=== PATIENT | female | born 1955 | race Caucasian/White ===

== ENCOUNTER 2017-07-20 07:14 | Emergency (ER) | payer BC ==
[~2017-07-20] VITALS: Ht 167.6 cm; Wt 52.0 kg
[~2017-07-20 07:14] MED LIST: AUGM875 PO; Z.0.NO CURRENT MEDS
[2017-07-20 07:17] VITALS: BP 181/106; PULSE 114; RESP 16; TEMP 98.5; O2SAT 99
[2017-07-20] MEDS ORDERED: LIDOCAINE 1%/EPINEPHrine 1:100,000 SOLN 30 ML VIAL ONE (07:44)
[2017-07-20] MEDS ORDERED: LIDOCAINE 1%/EPINEPHrine 1:100,000 SOLN 20 ML VIAL INFIL ONE (07:45)
--- NOTE | 2017-07-20 08:12 | PD ---
Physical Exam Date Seen by Provider: Jul 20, 2017 Time Seen by Provider: 08:09 Narrative 62-year-old female presents emergency department with right axillary abscesses over the past couple of weeks. Patient has been trying to use hot compresses to get them to drain. She has no history of this in the past. Patient was seen by Dr. Booth and I was asked to come and drain them. I&D was performed with culture obtained. Please see procedure note. Data Data Last Documented VS Vital Signs Date Time Temp Pulse Resp B/P (MAP) Pulse Ox O2 Delivery O2 Flow Rate FiO2 07/20/17 07:17 98.5 114 16 181/106 (131) 99 Orders Orders Wound Culture And Gram Stain (07/20/17 07:34) Lidocai-Epi 1%-1:100,000 Inj (Xylocaine- (07/20/17 07:45) Lidocai-Epi 1%-1:100,000 Inj (Xylocaine- (07/20/17 07:44) MDM Medical Record Reviewed: Yes Supervised Visit with JULIO: Yes Procedures Procedure Narrative After the risks and benefits were discussed the following procedure was performed: INCISION AND DRAINAGE OF ABSCESS: The area was prepped and was sterilely draped. A subcutaneous wheal of 1 % Xylocaine with epi with a total number 5 mL was used to anesthetize the area. The area was properly anesthetized. A number 11 scalpel was used to make 5 0.5-cm incisions across the areas of the abscess. Cultures were obtained. The abscess was drained an irrigated with normal saline. Sterile dressing applied. Patient is advised to keep the area clean and dry. Condition: Stable Po Londono Jul 20, 2017 08:12
[2017-07-20] MEDS ORDERED: TETANUS/DIPHTHERIA TOXOID ADULT 0.5 ML VIAL IM ONE (08:30)
[2017-07-20] MEDS ORDERED: DOXY100C PO (08:33)
[2017-07-20] MEDS ORDERED: BACT800T5 PO (08:33)
[2017-07-20] MEDS ORDERED: HYDR-3516 PO (08:33)
--- NOTE | 2017-07-20 08:54 | PD ---
HPI Chief Complaint: Skin Problem Time Seen by Provider: 07:33 Travel History International Travel<30 days: No Contact w/Intl Traveler<30days: No Traveled to known affect area: No History of Present Illness HPI 62-year-old female presents with right axilla abscesses. Patient states that it started several days ago. She has been using warm compresses to try to get him to come to ahead. She denies any previous history of abscesses. She denies any use of razors or shaving. There is no previous history of MRSA that she is aware of. She is unsure of her last tetanus shot. PFSH Past Medical History Arthritis: No Asthma: No Autoimmune Disease: No Blood Disorders: No Anxiety: No Depression: No Cancer: No Cardiovascular Problems: No High Cholesterol: No Chemotherapy: No Chest Pain: No Congestive Heart Failure: No COPD: No Cerebrovascular Accident: No Diabetes: No Diminished Hearing: No Endocrine: No GERD: No Glaucoma: No Genitourinary: No Headaches: No Hepatitis: No Hiatal Hernia: No Hypertension: No Immune Disorder: No Kidney Stones: No Musculoskeletal: No Neurologic: No Psychiatric: No Reproductive: No Respiratory: No Migraines: No Myocardial Infarction: No Radiation Therapy: No Renal Failure: No Seizures: No Sickle Cell Disease: No Thyroid Disease: No Ulcer: No Tetanus Vaccination: Unknown Influenza Vaccination: No ?: Not Past Surgical History Abdominal Surgery: No AICD: No Appendectomy: No Arteriovenous Shunt: No Cardiac Surgery: No Cholecystectomy: No Ear Surgery: No Endocrine Surgery: No Eye Surgery: No Genitourinary Surgery: No Gynecologic Surgery: No Insulin Pump: No Joint Replacement: No Oral Surgery: No Pacemaker: No Thoracic Surgery: No Social History Alcohol Use: No Tobacco Use: Yes (1PPD) Substance Use: No Allergies-Medications (Allergen,Severity, Reaction): Coded Allergies: No Known Allergies (Verified Adverse Reaction, Unknown, 07/20/17) Reported Meds & Prescriptions Reported Meds & Active Scripts Active Hydrocodone-Acetaminophen 5-325 mg Tab 1 Tab PO Q6H PRN Bactrim DS (Sulfamethoxazole-Trimethoprim) 800-160 Mg Tab 1 Tab PO BID Doxycycline Hyclate 100 Mg Cap 100 Mg PO BID Reported Augmentin (Amoxicillin/Clavulanate Potassium) 875 Mg Tab 875 Mg PO BID No Current Meds (Miscellaneous Medication) Misc Review of Systems Except as stated in HPI: all other systems reviewed are Neg General / Constitutional: No: Fever HENT: No: Headaches, Masses Cardiovascular: No: Chest Pain or Discomfort, Irregular Rhythm Respiratory: No: Cough, Shortness of Breath Gastrointestinal: No: Nausea, Vomiting, Abdominal Pain Musculoskeletal: Positive: Pain (Right axilla), Other (Abscesses to the right axilla under arm.) Skin: Positive Lesions (Multiple abscesses/infected skin follicles in the right axilla) Physical Exam Narrative GENERAL: Well-nourished, well-developed patient, in no acute distress. SKIN: Focused skin assessment warm/dry. Patient has multiple infected hair follicles in her right armpit. There is no obvious cellulitis. HEAD: Normocephalic/atraumatic. EYES: No scleral icterus. No injection or drainage. NECK: Supple, trachea midline. CARDIOVASCULAR: Regular rate and rhythm without murmurs, gallops, or rubs. RESPIRATORY: Breath sounds equal bilaterally. No accessory muscle use. NEUROLOGICAL: Awake and alert. Cranial nerves II through XII intact. Motor grossly within normal limits. Five out of 5 muscle strength in all muscle groups. Normal speech. Data Data Last Documented VS Vital Signs Date Time Temp Pulse Resp B/P (MAP) Pulse Ox O2 Delivery O2 Flow Rate FiO2 07/20/17 07:17 98.5 114 16 181/106 (131) 99 Orders Orders Wound Culture And Gram Stain (07/20/17 07:34) Lidocai-Epi 1%-1:100,000 Inj (Xylocaine- (07/20/17 07:45) Lidocai-Epi 1%-1:100,000 Inj (Xylocaine- (07/20/17 07:44) Tetanus/Diphtheria Tox Adult (Tetanus/Di (07/20/17 08:30) MDM Medical Decision Making Medical Screen Exam Complete: Yes Emergency Medical Condition: Yes Differential Diagnosis MRSA versus hidradenitis versus infected hair follicles Narrative Course 62-year-old female presents with multiple abscesses in her right armpit. They have been incised and drained by Josep Londono PA-C. The patient has been given tetanus immunization. She will be discharged with a prescription for Bactrim and doxycycline. She also given a prescription for 20 Lortab 10 tablets. She is instructed to return if she develops any worsening pain, fevers chills, or any other reason. Diagnosis Primary Impression: Multiple right axillary abscesses, status post incision and drain. Additional Impression: Folliculitis of right axilla Additional Instructions: Keep wound clean and dry. Return if evidence of worsening infection, pain, fevers chills, or any other reason. Med/Other Pt SpecificInfo: Prescription(s) given Scripts Hydrocodone-Acetaminophen (Hydrocodone-Acetaminophen) 5-325 mg Tab 1 TAB PO Q6H Y for PAIN, #20 TAB 0 Refills Prov: Russell Booth MD 07/20/17 Sulfamethoxazole-Trimethoprim (Bactrim DS) 800-160 Mg Tab 1 TAB PO BID for Infection, #20 TAB 0 Refills Prov: Russell Booth MD 07/20/17 Doxycycline Hyclate (Doxycycline Hyclate) 100 Mg Cap 100 MG PO BID for Infection, #20 CAP 0 Refills Prov: Russell Booth MD 07/20/17 Disposition: 01 DISCHARGE HOME Condition: Stable Russell Booth MD Jul 20, 2017 08:54
== END 2017-07-20 09:08 | disposition home or self-care (01) ==
LOC: NEPE 07:14
DX: L02.411 Cutaneous abscess of right axilla (principal); L73.9 Follicular disorder, unspecified; A49.02 Methicillin resistant Staphylococcus aureus infection, unspecified site; F17.200 Nicotine dependence, unspecified, uncomplicated; Z23 Encounter for immunization
CPT/HCPCS: 10060; 86403; 87070; 87186; 90471; 90714